=== PATIENT | male | born 2000 | race Two or more races ===

== ENCOUNTER 2024-12-06 16:09 | Emergency (ER) | payer OTHER ==
[~2024-12-06] VITALS: Ht 170.2 cm; Wt 77.3 kg
[2024-12-06 16:21] VITALS: BP 155/87; PULSE 108; RESP 18; TEMP 97.7; O2SAT 98
== END 2024-12-06 17:50 | disposition home or self-care (01) ==
LOC: ER 16:11
DX: S82.831A Other fracture of upper and lower end of right fibula, initial encounter for closed fracture (principal); X50.1XXA Overexertion from prolonged static or awkward postures, initial encounter; Y93.89 Activity, other specified; Y92.89 Other specified places as the place of occurrence of the external cause; Y99.8 Other external cause status
CPT/HCPCS: 29515; 73610; 99283; A6446; A6449